=== PATIENT | female | born 1960 | race Caucasian/White ===

== ENCOUNTER 2016-10-19 08:38 | Emergency (ER) | payer BC ==
[~2016-10-19] VITALS: Ht 172.7 cm; Wt 175.0 kg
[~2016-10-19 08:38] MED LIST: CALC500 PO; HYDR-2768 PO; LEVO.125 PO; [UNRECOGNIZED DRUG - CODE] PO
[2016-10-19 08:41] VITALS: BP 152/70; PULSE 90; RESP 24; TEMP 98.1; O2SAT 95
[2016-10-19] MEDS ORDERED: HYDR25TA5 PO (08:53)
[2016-10-19] MEDS ORDERED: CALC600T12 PO (08:53)
[2016-10-19] MEDS ORDERED: CALC0.5C6 PO (08:53)
[2016-10-19] MEDS ORDERED: LEVO.2 PO (08:53)
--- NOTE | 2016-10-19 08:55 | PD ---
HPI Chief Complaint: Pain: Acute or Chronic Time Seen by Provider: 08:55 Travel History International Travel<30 days: No Contact w/Intl Traveler<30days: No Traveled to known affect area: No History of Present Illness HPI 56-year-old female presents to the emergency department for evaluation of left ankle pain that started on Saturday, 2 days ago. She denies a traumatic injury. She does state that she sprained her right knee over Thanks break and has been walking differently since. However, just recently, her knee felt better so she was started walking normally again. Patient denies any chest pain or shortness of breath. She denies any abdominal pain. No vomiting. No fevers or chills. She denies any calf or leg pain. She denies any loss of sensation. She does report a history of thyroidectomy, low calcium levels, nephrolithiasis. Patient denies any skin changes to the ankle. She states the pain is on her left lateral ankle. Patient states that the pain is worse with movement and walking. Pain is relieved with rest. No other complaints. PFSH Past Medical History Cancer: No Diabetes: No Glaucoma: No Hepatitis: No Hiatal Hernia: No Hypertension: No Medical other: Yes (HYPOCALCEMIA) Thyroid Disease: Yes Tetanus Vaccination: > 5 Years Influenza Vaccination: Yes ?: Not LMP: 2014 Past Surgical History Endocrine Surgery: Yes (THYROIDECTOMY) Social History Alcohol Use: Yes (OCCAS.) Tobacco Use: No Substance Use: No Allergies-Medications (Allergen,Severity, Reaction): Coded Allergies: No Known Allergies (Unverified , 10/19/16) Reported Meds & Prescriptions Reported Meds & Active Scripts Active Medrol Dosepak (Methylprednisolone) 4 Mg Dspk 4 Mg PO DIRECTED Per Pharmacist direction Lortab (Hydrocodone-Acetaminophen) 5-325 Mg Tab 1 Tab PO Q6H PRN Reported Calcium (Calcium Carbonate) 1,500 Mg Tab 10,000 Units PO 1,500 mg calcium carbonate (600 mg elemental calcium) Calcitriol 0.5 Mcg Cap 2 Mcg PO DAILY Synthroid (Levothyroxine Sodium) 200 Mcg Tab 250 Mcg PO DAILY Hydrochlorothiazide 25 Mg Tab 25 Mg PO DAILY Review of Systems Except as stated in HPI: all other systems reviewed are Neg Physical Exam Narrative GENERAL: Well-developed well-nourished obese female patient, ambulatory. Afebrile. SKIN: Warm and dry. No skin changes noted to left ankle. HEAD: Normocephalic. Atraumatic. EYES: No scleral icterus. No injection or drainage. NECK: Supple, trachea midline. No JVD or lymphadenopathy. CARDIOVASCULAR: Regular rate and rhythm without murmurs, gallops, or rubs. Left pedal pulse is 2+. Capillary refill is less than 2 seconds to the digits of the left foot. RESPIRATORY: Breath sounds equal bilaterally. No accessory muscle use. Lungs sounds are clear to auscultation. GASTROINTESTINAL: Abdomen soft, non-tender, nondistended. MUSCULOSKELETAL: No cyanosis, or edema. Patient has tenderness over left lateral ankle. No calf pain, knee pain, thigh pain to palpation. She has pain with movement of the left ankle. Patient has full sensation to the distal left lower extremity. Data Data Last Documented VS Vital Signs Date Time Temp Pulse Resp B/P Pulse Ox O2 Delivery O2 Flow Rate FiO2 10/19/16 08:41 98.1 90 24 152/70 95 Room Air Orders Ankle, Complete (Flv2czc) (10/19/16 ) Acetamin-Hydrocod 325-5 Mg ([place]ax 5-325 (10/19/16 09:00) Splint Or Brace Apply/Monitor (10/19/16 10:14) MDM Medical Decision Making Medical Screen Exam Complete: Yes Emergency Medical Condition: Yes Medical Record Reviewed: Yes Interpretation(s) x-ray left ankle - CONCLUSION: 1. Soft tissue adjacent to the lateral malleolus without acute underlying fracture. 2. Old healed fracture of the left distal fibula. 3. Diffuse soft tissue calcifications within the lower leg suggesting possible dermatomyositis. 4. Plantar and Achilles calcaneal spurs. Differential Diagnosis Ankle sprain versus fracture versus dislocation Narrative Course 56-year-old female presents to the emergency department for evaluation of left ankle pain for 2 days without traumatic injury. She has no other symptoms or complaints. No evidence of cellulitis. X-ray of the left ankle is ordered and pending. X-ray of the left ankle shows 1. Soft tissue adjacent to the lateral malleolus without acute underlying fracture; old healed fracture of the left distal fibula ; Diffuse soft tissue calcifications within the lower leg suggesting possible dermatomyositis; Plantar and Achilles calcaneal spurs. Patient denies any history of left ankle fracture. I discussed the results by attending physician, Dr. Jane, who does recommend outpatient follow-up and splint. The patient be placed in a posterior short leg/sugar tong splint to the left ankle. She states she has a walker at home that she can use. I instructed her to follow-up with her primary care physician regarding possible dermatomyositis. She agrees to this. Patient will be discharged a short-term prescription for Lortab for pain as well as a medrol dose pack. She denies any history of diabetes. She is to follow her primary care physician and orthopedist. Diagnosis Primary Impression: Left lateral ankle pain Referrals: Alfonso Padilla MD call for appointment Patient Instructions: Ankle Fracture (ED), General Instructions Additional Instructions: Follow-up with your primary care physician. Follow-up with an orthopedist. Dr. Padilla is the orthopedist on-call today. Take prednisone as directed. Take Lortab as instructed as needed for pain. Wear splint. Elevate. Use your walker that you have at home. Return to the emergency department for any acute worsening of symptoms. Med/Other Pt SpecificInfo: Prescription(s) given Scripts Methylprednisolone Dosepak (Medrol Dosepak)4 Mg Dspk4 Mg PO DIRECTED #1 DSPK Ref 0 Per Pharmacist direction Prov:Laura Mohan 10/19/16 Hydrocodone-Acetaminophen (Lortab)5-325 Mg Tab1 Tab PO Q6H PRN (PAIN) #16 TAB Ref 0 Prov:Ran Jane MD 10/19/16 Disposition: 01 DISCHARGE HOME Condition: Stable Laura Mohan Oct 19, 2016 08:55
[2016-10-19] MEDS ORDERED: ACETAMINOPHEN/HYDROcodone 325 MG/5 MG TAB PO ONE (09:00)
--- NOTE | 2016-10-19 09:54 | RADRPT ---
EXAM DATE/TIME: 10/19/2016 09:14 [facility] COMPARISON: No previous studies available for comparison. INDICATIONS: Left ankle pain and swelling after fall. MEDICAL HISTORY: None. SURGICAL HISTORY: None. ENCOUNTER: Initial ACUITY: 4 - 6 days PAIN SCORE: 8/10 LOCATION: Left, portable. FINDINGS: There is soft tissue swelling adjacent to the lateral malleolus. Old healed fracture of the left dis shirley fibula is noted. There is no acute fracture of the left ankle. Plantar and Achilles calcaneal sp urs are noted. There is diffuse soft tissue calcification involving the lower leg raising the possib ility of dermatomyositis. CONCLUSION: 1. Soft tissue adjacent to the lateral malleolus without acute underlying fracture. 2. Old healed fracture of the left distal fibula. 3. Diffuse soft tissue calcifications within the lower leg suggesting possible dermatomyositis. 4. Plantar and Achilles calcaneal spurs. Jake Moulton MD on October 19, 2016 at 9:21 Board Certified Radiologist. This report was verified electronically.
[2016-10-19] MEDS ORDERED: HYDR-3533 PO (10:15)
[2016-10-19] MEDS ORDERED: MEDR4PAK PO (10:19)
== END 2016-10-19 11:06 | disposition home or self-care (01) ==
LOC: NEPB 08:38
DX: M25.572 Pain in left ankle and joints of left foot (principal); M77.32 Calcaneal spur, left foot
CPT/HCPCS: 29515; 73610

== ENCOUNTER 2016-10-26 17:42 | Emergency (ER) | payer BC ==
[~2016-10-26] VITALS: Ht 172.7 cm; Wt 175.0 kg
[~2016-10-26 17:42] MED LIST changes: +CALC0.5C6 PO; -CALC500 PO; +CALC600T12 PO; -HYDR-2768 PO; +HYDR-3533 PO; +HYDR25TA5 PO; -LEVO.125 PO; +LEVO.2 PO; +MEDR4PAK PO; -[UNRECOGNIZED DRUG - CODE] PO
[2016-10-26 17:45] VITALS: BP 173/79; PULSE 86; RESP 16; TEMP 98.1; O2SAT 96
--- NOTE | 2016-10-26 18:31 | PD ---
HPI Chief Complaint: Pain: Acute or Chronic Time Seen by Provider: 18:22 Travel History International Travel<30 days: No Contact w/Intl Traveler<30days: No Traveled to known affect area: No History of Present Illness HPI 56 year old female presents to the emergency department asking for the splint to her left ankle to be readjusted. She states she was having trouble finding an appointment with the orthopedist who she was referred to. However, she does have an upcoming appointment on November 06, [address] Pena. She states her ankle pain is diminished quite a bit. However, she has a pain in her left toe from the splint. She denies any new complaints. PFSH Past Medical History Cancer: No Diabetes: No Glaucoma: No Hepatitis: No Hiatal Hernia: No Hypertension: No Thyroid Disease: Yes ?: Not Past Surgical History Endocrine Surgery: Yes (THYROIDECTOMY) Social History Alcohol Use: Yes (OCCAS.) Tobacco Use: No Substance Use: No Allergies-Medications (Allergen,Severity, Reaction): Coded Allergies: No Known Allergies (Unverified , 10/19/16) Reported Meds & Prescriptions Reported Meds & Active Scripts Active Medrol Dosepak (Methylprednisolone) 4 Mg Dspk 4 Mg PO DIRECTED Per Pharmacist direction Reported Calcium (Calcium Carbonate) 1,500 Mg Tab 10,000 Units PO 1,500 mg calcium carbonate (600 mg elemental calcium) Calcitriol 0.5 Mcg Cap 2 Mcg PO DAILY Synthroid (Levothyroxine Sodium) 200 Mcg Tab 250 Mcg PO DAILY Hydrochlorothiazide 25 Mg Tab 25 Mg PO DAILY Review of Systems Except as stated in HPI: all other systems reviewed are Neg Physical Exam Narrative GENERAL: Well-developed well-nourished female patient, ambulatory. Afebrile. SKIN: Warm and dry. HEAD: Normocephalic. Atraumatic. EYES: No scleral icterus. No injection or drainage. NECK: Supple, trachea midline. No JVD or lymphadenopathy. CARDIOVASCULAR: Left pedal pulse 2+. Capillary refill less than 2 seconds to the digits of the left foot. RESPIRATORY: No accessory muscle use. MUSCULOSKELETAL: No cyanosis, or edema. Patient splint to left ankle noted. She has full sensation to the distal left lower extremity. Data Data Last Documented VS Vital Signs Date Time Temp Pulse Resp B/P Pulse Ox O2 Delivery O2 Flow Rate FiO2 10/26/16 17:45 98.1 86 16 173/79 96 Orders Splint Or Brace Apply/Monitor (10/26/16 18:20) MDM Medical Decision Making Medical Screen Exam Complete: Yes Emergency Medical Condition: Yes Medical Record Reviewed: Yes Differential Diagnosis New splint placement versus left ankle fracture versus medical clearance Narrative Course 56-year-old female presents to the emergency department requesting her splint to her left ankle to be readjusted. She does have an upcoming appointment with orthopedist on November 06, 2016. I spoke to the [employer] who will reapply the splint to her left ankle. She is to keep her upcoming appointment. She is agreeable to this plan. Diagnosis Primary Impression: Left lateral ankle pain Referrals: Orthopedist call for appointment Patient Instructions: Ankle Fracture (ED), General Instructions Additional Instructions: Follow-up with orthopedist as scheduled. Return to the emergency department for any acute worsening of symptoms. Med/Other Pt SpecificInfo: No Change to Meds Disposition: 01 DISCHARGE HOME Condition: Stable Laura Mohan Oct 26, 2016 18:31
== END 2016-10-26 18:51 | disposition home or self-care (01) ==
LOC: NEPB 17:42
DX: M25.572 Pain in left ankle and joints of left foot (principal); Z46.89 Encounter for fitting and adjustment of other specified devices
CPT/HCPCS: 29515